=== PATIENT | female | born 1975 | race Caucasian/White ===

== ENCOUNTER 2016-05-10 20:48 | Emergency (ER) | payer MEDICAID, OTHER ==
[~2016-05-10] VITALS: Ht 162.6 cm; Wt 77.1 kg
[~2016-05-10 20:48] MED LIST: CARBAMAZEPINE200 M1 PO; TOPAMAX100 MG PO
[2016-05-10 20:57] VITALS: BP 103/74
--- NOTE | 2016-05-10 21:10 | NUR ---
TO ER BED 8
[2016-05-10] MEDS ORDERED: LORazepam 0.5 MG TAB PO ONE (21:35)
--- NOTE | 2016-05-10 21:35 | NUR ---
41 YEAR OLD FEMALE CAME IN DUE TO NUMBNESS OF BOTH HANDS AFTER TAKING OVER THE COUNTER MULTIVITAMINS SINCE LAST WEEK. NO SEIZURE NOTED. NO PAIN, DENIES NAUSEA/VOMITING/DIARRHEA.
[2016-05-10 23:42] VITALS: BP 105/69
--- NOTE | 2016-05-10 23:42 | NUR ---
Patient discharged with v/s stable. Written and verbal after care instructions given and explained WITH RX ATIVAN. Patient verbalized understanding. Ambulatory with steady gait. All questions addressed prior to discharge. Advised to follow up with PMD. DISCHARGED PER DR. IRIZARRY.
[2016-08-10] MEDS ORDERED: TEGRETOL200 MG PO (15:26)
[2016-08-11] MEDS ORDERED: TOPAMAX100 MG PO (15:16)
[2016-08-11] MEDS ORDERED: TEGRETOL200 M1 PO (15:16)
== END 2016-05-10 23:42 | disposition home or self-care (01) ==
LOC: MED 20:48
DX: G40.909 Epilepsy, unspecified, not intractable, without status epilepticus (principal); F41.9 Anxiety disorder, unspecified

== ENCOUNTER 2016-05-13 19:30 | Emergency (ER) | payer OTHER, MEDICAID ==
[~2016-05-13] VITALS: Ht 162.6 cm; Wt 77.1 kg
[2016-05-13 19:50] VITALS: BP 119/86
--- NOTE | 2016-05-13 19:58 | NUR ---
TO ER BED 3
--- NOTE | 2016-05-13 20:05 | NUR ---
41 Y/O HERE W/C/O NEEDS REFILL ON TEGRETOL, AND ALSO C/O PAIN AND SPASTICITY TO L 4 AND 5TH FINGERS SINCE LAST SEIZURE ACTITY 2 WKS AGO. NO S/S OF DISTRESS NOTED AT THE MOMENT. ER MADE AWARE.
--- NOTE | 2016-05-13 20:47 | NUR ---
MOVED TO ER OF1
--- NOTE | 2016-05-13 20:49 | NUR ---
Patient being evaluated by physician.
[2016-05-13 20:55] VITALS: BP 119/86
--- NOTE | 2016-05-13 20:55 | NUR ---
Patient discharged with v/s stable. Written and verbal after care instructions given and explained. Patient alert, oriented and verbalized understanding of instructions. Ambulatory with steady gait. All questions addressed prior to discharge. ID band removed. Patient advised to follow up with PMD. Rx of TEGRETOL given. Patient educated on indication of medication including possible reaction and side effects. Opportunity to ask questions provided and answered.
[2016-08-10] MEDS ORDERED: TEGRETOL200 MG PO (15:26)
[2016-08-11] MEDS ORDERED: TEGRETOL200 M1 PO (15:16)
[2016-08-11] MEDS ORDERED: TOPAMAX100 MG PO (15:16)
== END 2016-05-13 20:55 | disposition home or self-care (01) ==
LOC: MED 19:30
DX: Z76.0 Encounter for issue of repeat prescription (principal); R56.9 Unspecified convulsions

== ENCOUNTER 2016-05-24 17:57 | Emergency (ER) | payer OTHER, MEDICAID ==
[~2016-05-24] VITALS: Ht 162.6 cm; Wt 83.0 kg
[2016-05-24 18:27] VITALS: BP 130/84
--- NOTE | 2016-05-24 19:41 | NUR ---
PT TAKEN TO OF
--- NOTE | 2016-05-24 19:44 | NUR ---
41Y/F PATIENT PRESENTS TO ED FOR MEDICATIONS REFILL. AAO X4, AMBULATORY WITH STEADY GAIT. NO S/SX OF DISTRESS. VSS.
--- NOTE | 2016-05-24 19:57 | NUR ---
Dr. Juarez evaluating patient
--- NOTE | 2016-05-24 20:20 | NUR ---
Patient discharged with v/s stable. Written and verbal after care instructions given and explained. Patient alert, oriented and verbalized understanding of instructions. Ambulatory with steady gait. All questions addressed prior to discharge. ID band removed. Patient advised to follow up with PMD. Rx of TOPIRAMATE 100 MG given. Patient educated on indication of medication including possible reaction and side effects. Opportunity to ask questions provided and answered.
[2016-05-24 20:26] VITALS: BP 130/84
--- NOTE | 2016-05-24 20:27 | NUR ---
Note [place] in EDM - 05/24/16 at 2026 by MED Patient discharged with v/s stable. Written and verbal after care instructions given and explained. Patient alert, oriented and verbalized understanding of instructions. Ambulatory with steady gait. All questions addressed prior to discharge. ID band removed. Patient advised to follow up with PMD. Rx of TOPIRAMATE 100 MG given. Patient educated on indication of medication including possible reaction and side effects. Opportunity to ask questions provided and answered.
[2016-08-10] MEDS ORDERED: TEGRETOL200 MG PO (15:26)
[2016-08-11] MEDS ORDERED: TEGRETOL200 M1 PO (15:16)
[2016-08-11] MEDS ORDERED: TOPAMAX100 MG PO (15:16)
== END 2016-05-24 20:20 | disposition home or self-care (01) ==
LOC: MED 17:57
DX: Z76.0 Encounter for issue of repeat prescription (principal)

== ENCOUNTER 2016-06-11 01:25 | Emergency (ER) | payer OTHER, MEDICAID ==
[~2016-06-11] VITALS: Ht 162.6 cm; Wt 72.6 kg
[2016-06-11 01:32] VITALS: BP 150/90
--- NOTE | 2016-06-11 01:45 | NUR ---
BIBA TO ER BED 8
--- NOTE | 2016-06-11 01:46 | NUR ---
41 Y/O F BIBA W/C/O L WRIST PAIN AND NUMBNESS X TODAY. FAMILY CALLED AMBULANCE BECAUSE PT NOT ACTING HERSELF. PT ALERT AND ORIENTED X 4 BUT SMILES VERY OFTEN WITH NO REASONS AND SEEMS DISORIENTED FOR MOMENTS. PT ON MONITOR, VSS. NO S/S OF DISTRESS ER MD MADE AWARE.
--- NOTE | 2016-06-11 02:30 | NUR ---
PT STABLE, ON MONITOR. NO S/S OF DISTRESS NOTED ON D/C.
--- NOTE | 2016-06-11 03:30 | NUR ---
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 PER PT OK FOR US TO CALL A TAXI FOR HER. PT ALERT AND ORIENTED X 4. NO S/S OF DISTRESS NOTED AT THE MOMENT.
[2016-06-11 03:46] VITALS: BP 121/68
--- NOTE | 2016-06-11 03:46 | NUR ---
PER ER MD Patient discharged with v/s stable. Written and verbal after care instructions given and explained. Patient alert, oriented and verbalized understanding of instructions. Ambulatory with steady gait. All questions addressed prior to discharge. ID band removed. Patient advised to follow up with PMD OR RETURN TO ER IF CONDITION WORSENS. Rx of CIPROFLOXACIN given. Patient educated on indication of medication including possible reaction and side effects. Opportunity to ask questions provided and answered.
--- NOTE | 2016-06-11 04:18 | NUR ---
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
[2016-08-10] MEDS ORDERED: TEGRETOL200 MG PO (15:26)
[2016-08-11] MEDS ORDERED: TEGRETOL200 M1 PO (15:16)
[2016-08-11] MEDS ORDERED: TOPAMAX100 MG PO (15:16)
== END 2016-06-11 03:46 | disposition home or self-care (01) ==
LOC: MED 01:25
DX: M79.602 Pain in left arm (principal)
CPT/HCPCS: 36415; 80053; 80305; 81001; 81025; 82550; 84484; 85025; 87086; 87186; 93005; 99285; G0480; G0482

== ENCOUNTER 2016-06-20 08:10 | Emergency (ER) | payer MEDICAID ==
[~2016-06-20] VITALS: Ht 162.6 cm; Wt 68.0 kg
[~2016-06-20 08:10] MED LIST changes: +CARB200T7 PO; -CARBAMAZEPINE200 M1 PO; -TOPAMAX100 MG PO; +[UNRECOGNIZED DRUG - CODE] PO
[2016-06-20 08:14] VITALS: BP 133/80
[2016-06-20 09:38] VITALS: BP 123/88
== END 2016-06-20 09:38 | disposition home or self-care (01) ==
LOC: MED 08:10
DX: Z91.19 Patient's noncompliance with other medical treatment and regimen (principal); G40.909 Epilepsy, unspecified, not intractable, without status epilepticus
CPT/HCPCS: 99283

== ENCOUNTER 2016-07-13 14:43 | Emergency (ER) | payer MEDICAID ==
[~2016-07-13] VITALS: Ht 162.6 cm; Wt 72.6 kg
[2016-07-13 15:23] VITALS: BP 122/70
--- NOTE | 2016-07-13 19:10 | NUR ---
PT TAKEN TO BED 8
[2016-07-13] MEDS ORDERED: LORazepam 2 MG/ML VIAL IM/IVP ONE (19:20)
--- NOTE | 2016-07-13 19:20 | NUR ---
41Y F BIB SELF REQUESTING MEDICATION REFILL OF TEGRETOL 200 TID; AND TOPAMAX 100MG TID; PT STATES SHE MOVED HERE FROM [place] AND IS LOOKING FOR NEUROLOGIST REFERAL. PT HAD SEIZURE WHILE WAITING IN ER BED 8. NO SIGNS OF ORAL TRAUMA WAS NOTED. PT WAS BROUGHT TO BED SAFELY BY ER STAFF. NO TRAUMA TO HEAD NOTED WELL. PT HAS HX OF SEIZURE. SEIZURE PRECAUTION APPLIED.
--- NOTE | 2016-07-13 19:24 | NUR ---
Dr. Sanches evaluating patient at bedside.
[2016-07-13] MEDS ORDERED: LORazepam 2 MG/ML VIAL ONE (19:29)
--- NOTE | 2016-07-13 19:50 | NUR ---
Pt report given to TUCKER RICHARDSON. Transfer of care at this time.
--- NOTE | 2016-07-13 19:50 | NUR ---
RECEIVED REPORT FROM DYLAN AGUILAR FOR TRANSFER OF CARE.
--- NOTE | 2016-07-13 20:01 | NUR ---
PT RETURNED FROM CT
[2016-07-13] MEDS ORDERED: TOPIRAMATE 100 MG TAB PO ONE (20:50)
[2016-07-13] MEDS ORDERED: carBAMazepine 200 MG TAB PO ONE (20:50)
--- NOTE | 2016-07-13 20:53 | NUR ---
TOPAMAX 100MG NOT IN PYXIS, HOUSE SUP HAS BEEN NOTIFIED
[2016-07-13 21:07] VITALS: BP 118/78
--- NOTE | 2016-07-13 21:08 | NUR ---
Patient discharged with v/s stable. Written and verbal after care instructions given and explained. Patient alert, oriented and verbalized understanding of instructions. Ambulatory with steady gait. All questions addressed prior to discharge. ID band removed. Patient advised to follow up with PMD. Rx of TEGRETOL-XR, TOPAMAX given. Patient educated on indication of medication including possible reaction and side effects. Opportunity to ask questions provided and answered.
[2016-07-13] MEDS ORDERED: TOPIRAMATE 25 MG TAB ONE (21:13)
== END 2016-07-13 21:08 | disposition home or self-care (01) ==
LOC: MED 14:43
DX: Z76.0 Encounter for issue of repeat prescription (principal); R56.9 Unspecified convulsions
CPT/HCPCS: 70450; 96374; 99284; J2060

== ENCOUNTER 2016-08-10 14:58 | Inpatient (IN) | payer MEDICAID ==
[~2016-08-10] VITALS: Ht 162.6 cm; Wt 63.1 kg
--- NOTE | 2016-08-10 15:00 | NUR ---
Patient BIBA ACLS accompanied by Laurie SONG, transferred to bed 7. RN evaluating patient at bedside.
--- NOTE | 2016-08-10 15:05 | NUR ---
41/F biba for seizure while riding on the bus. Witnessed seizure, unknown for how long. Mother brought in with the patient and states she fell on her back and hit her head and had a seizure. Pt is awake and alert x4, clear speech. Pt states "I had a seizure." Pt states she is taking seizure medication, hx of seizure. Denies any pain. No oral trauma noted. Skin warm and dry. VSS. Pt placed in a gown, placed on cardiac catheterization technician, pulse oximetry and blood pressure monitoring. Suction set up at bedside. Bed placed in lowest position, both side rails up. Seizure pads applied. Mother brought to bedside.
[2016-08-10 15:16] VITALS: BP 100/66
--- NOTE | 2016-08-10 15:23 | NUR ---
SEIZURE ACTIVITY.ERMD AT BEDSIDE/MONITORED. NO INJURY
[2016-08-10] MEDS ORDERED: CARB200T1 PO (15:26)
--- NOTE | 2016-08-10 15:30 | NUR ---
PATIENT MEDICATED ATIVAN 1MG.IVP
[2016-08-10] MEDS ORDERED: LORazepam 2 MG/ML VIAL ONE (15:31)
[2016-08-10 15:53] LABS: BASOPHILS # (AUTO) 0.2 K/uL (0.00-0.22); BASOPHILS % (AUTO) 2.1 % (0.0-2.0); EOSINOPHILS # (AUTO) 0.1 K/uL (0-0.4); EOSINOPHILS % (AUTO) 1.1 % (0.0-4.0); HEMATOCRIT 37.2 % (36-48); LYMPHOCYTES # (AUTO) 3.8 K/uL (2.5-16.5); LYMPHOCYTES % (AUTO) 32.6 % (20.5-51.1); MEAN CORPUSCULAR HEMOGLOBIN 26 pg (27-31); MEAN CORPUSCULAR HGB CONC 32 g/dL (33-37); MEAN CORPUSCULAR VOLUME 82 fL (80-94); MONOCYTES # (AUTO) 0.5 K/uL (0.8-1.0); MONOCYTES % (AUTO) 4.3 % (1.7-9.3); NEUTROPHILS # (AUTO) 7.1 K/uL (1.8-7.7); NEUTROPHILS % (AUTO) 59.9 % (42.2-75.2); PLATELET COUNT (AUTO) 220 K/uL (140-450); RED BLOOD CELL COUNT(AUTO) 4.53 MIL/uL (4.20-5.40); RED CELL DISTRIBUTION WIDTH 14.7 % (11.6-13.7); WHITE BLOOD COUNT (AUTO) 11.7 K/uL (4.8-10.8)
--- NOTE | 2016-08-10 15:55 | NUR ---
Pt is now calm and relaxed at this time. VSS.
--- NOTE | 2016-08-10 16:09 | NUR ---
X-Ray at bedside.
--- NOTE | 2016-08-10 16:11 | NUR ---
Patient taken to CT via gurney.
[2016-08-10 16:13] LABS: ANION GAP 22.5 (8-16); CALCIUM 8.1 mg/dL (8.5-10.1); CARBON DIOXIDE 13.1 mmol/L (21-32); CREATININE 1.1 mg/dL (0.6-1.3); POTASSIUM 3.6 mmol/L (3.5-5.1)
[2016-08-10 16:14] LABS: PHENYTOIN (DILANTIN) 0.7 ug/ml (10.0-20.0)
[2016-08-10 16:15] LABS: PHENOBARBITAL < 1 ug/ml (15-40)
[2016-08-10] MEDS ORDERED: HYDROcodone/APAP 5/325 MG 1 TAB TAB PO PRN (16:20)
[2016-08-10] MEDS ORDERED: ONDANSETRON 4 MG/2 ML VIAL IVP PRN (16:20)
[2016-08-10] MEDS ORDERED: LORazepam 2 MG/ML VIAL IVP PRN (16:20)
[2016-08-10] MEDS ORDERED: MORPHINE SULFATE 2 MG/ML SYR IVP PRN ×2 (16:20→19:05)
--- NOTE | 2016-08-10 16:23 | NUR ---
Patient returned from CT scan.
[2016-08-10] MEDS ORDERED: PHENYTOIN 1,000 MG in NACL 0.9% 100 ML IV ONE (16:30)
[2016-08-10] MEDS ORDERED: PHENYTOIN 1,000 MG in NACL 0.9% 100 ML IV SCH (16:32)
--- NOTE | 2016-08-10 17:00 | NUR ---
Pt ambulated to restroom with steady gait.
--- NOTE | 2016-08-10 17:29 | NUR ---
Patient will be admitted to care of Dr. Cai. Admited to TELE. Will go to room 109-B. Belongings list completed. Report to Quynh RICHARDSON.
--- NOTE | 2016-08-10 17:55 | NUR ---
PT BROUGHT IN FROM ER IN [facility], PT AMBULATES WITH STEADY GAIT FROM HALLWAY TO BED, PT AAOX4, RESP EVEN UNLABORED, SKIN WARM DRY COLOR WNL, PIV TO LEFT FA, INFUSION OF DILANTIN FROM ER CONTINUES, SITE CLEAR, PT PLACED ON MANAGER HOME IMPROVEMENT, PT ORIENTED TO FLOOR, CALL [place] WITHIN REACH, SIDE RAILS UP, BED LOCKED IN LOW POSITION, SIDE RAILS PADDED FOR SZ PRECAUTION, PT C/O MANCERA, REQUESTS TYLENOL, DR MINERVA COUCH AT THIS TIME. WILL CONTINUE TO MONITOR. Addendum: 08/10/16 at 1941 by Quynh Elias RN PT SPEAKS CLEARLY, NO SZ ACTIVITY NOTED.
[2016-08-10 18:00] VITALS: BP 103/67
[2016-08-10] MEDS: NACL 0.9% 1,000 ML IV SCH (18:10)
--- NOTE | 2016-08-10 18:10 | NUR ---
DR PALMA NOTIFIED OF PT C/O MANCERA, DR PALMA TO ORDER TYLENOL.
[2016-08-10] MEDS: ACETAMINOPHEN 325 MG TAB PO PRN (18:54)
[2016-08-10] MEDS ORDERED: LORazepam 2 MG/ML VIAL IM/IVP PRN (18:55)
[2016-08-10 19:03] LABS: APPEARANCE,URINE CLEAR (CLEAR); BILIRUBIN,URINE NEGATIVE (NEGATIVE); BLOOD, URINE NEGATIVE (NEGATIVE); COLOR,URINE YELLOW (YELLOW); LEUKOCYTE ESTERASE ,URINE NEGATIVE (NEGATIVE); NITRITE, URINE NEGATIVE (NEGATIVE); PROTEIN,URINE 1+ (NEGATIVE); UGLUCOSE NEGATIVE (NEGATIVE); UROBILINOGEN,URINE 0.2 EU/dL (0.2 - 1)
[2016-08-10 19:10] LABS: AMPHETAMINE, URINE NEG. ng/ml (NEG <=1000); BARBITURATE, URINE NEG. ng/ml (NEG <=200); BENZODIAZEPINE, URINE NEG. ng/mL (NEG <=200); CANNABINOID, URINE NEG. ng/mL (NEG <=50); COCAINE, URINE NEG. ng/mL (NEG <=300); OPIATE, URINE NEG. ng/mL (NEG <=2000); PHENCYCLIDINE SCREEN,URINE NEG. ng/mL (NEG <=25)
[2016-08-10 19:16] LABS: BACTERIA,URINE None Seen /HPF (None Seen); RBC,URINE NONE SEEN /HPF (0-5); SQUAMOUS EPITHELIAL CELL,UR None Seen /LPF (0-3 (FEW)); WBC,URINE NONE SEEN /HPF (0-5)
[2016-08-10 19:19] LABS: PARTIAL THROMBOPLASTIN TIME 26.6 secs (22-35.6); PROTHROMBIN TIME 10.3 secs (10.8-13.4)
[2016-08-10 19:20] LABS: THYROID STIMULATING HORMONE 1.35 uIU/mL (0.34-3.74)
--- NOTE | 2016-08-10 19:25 | NUR ---
REPORT GIVEN TO [place] NURSE, PT IN STABLE CONDITION.
--- NOTE | 2016-08-10 19:26 | NUR ---
RECEIVED REPORT FROM DAY RN FOR CONTINUITY OF CARE. PATIENT IS 41 Y.O. FEMALE BROUGHT TO UNIT WITH DX: STATUS EPILEPTICUS. PATIENT IS A&OX4, DISCUSSED PLAN OF CARE WITH PATIENT, VERBALIZED UNDERSTANDING. SHIFT ASSESSMENT DONE, VS TAKEN, STABLE AT THIS TIME. NO S/S OF RESPIRATORY DISTRESS NOTED ON ROOM AIR. PATIENT DENIES PAIN AT THIS TIME. SKIN INTACT, BILATERAL KNEE BRUISING PER PATIENT FROM FALL DURING SEIZURE. IV TO LT FA 20 GAUGE PATENT AND INFUSING FLUIDS WELL. SAFETY/SEIZURE PRECAUTIONS ENFORCED. CALL LIGHT WITHIN REACH. WILL CONTINUE TO MONITOR.
--- NOTE | 2016-08-10 19:50 | NUR ---
PATIENT TAKEN OFF UNIT TO XRAY VIA WHEELCHAIR, IN STABLE CONDITION.
[2016-08-10 20:00] VITALS: BP 100/68
--- NOTE | 2016-08-10 20:14 | NUR ---
PT IS NOT IN ROOM FOR ABG. WILL DO IT AFTER SHE IS BACK.
--- NOTE | 2016-08-10 20:30 | NUR ---
PATIENT RETURNED FROM XRAY AND NOW RESTING IN BED. CALL LIGHT WITHIN REACH.
[2016-08-10 20:40] LABS: BLOOD GAS BASE EXCESS -5.7 mmol/L (-2.0-2.0); BLOOD GAS HCO3 19.1 mmol/L; BLOOD GAS PCO2 35.4 mmHg (20-50); BLOOD GAS PO2 102.3 mmHg
[2016-08-10 20:41] LABS: BLOOD GAS O2 SAT% 97.6 % (92.0-98.5)
[2016-08-10 20:42] LABS: BLOOD GAS PH 7.351 (7.35-7.45)
--- NOTE | 2016-08-10 20:43 | NUR ---
ABG DONE WITHOUT INCIDENT.
[2016-08-10] MEDS: HYDROcodone/APAP 5/325 MG 1 TAB TAB PO PRN (22:39)
--- NOTE | 2016-08-10 22:39 | NUR ---
PT C/O HEADACHE, MEDICATED PER MD ORDER. WILL CONTINUE TO MONITOR.
[2016-08-11] VITALS: BP 96/48
--- NOTE | 2016-08-11 00:10 | NUR ---
VITAL SIGNS STABLE AT THIS TIME. PATIENT AMBULATED TO RESTROOM, NO S/S OF DISTRESS OR DISCOMFORT NOTED. CALL LIGHT IN REACH.
--- NOTE | 2016-08-11 02:10 | NUR ---
PATIENT SLEEPING AT THIS TIME, NO S/S OF DISTRESS OR DISCOMFORT NOTED. WILL CONTINUE TO MONITOR.
[2016-08-11] MEDS: NACL 0.9% 1,000 ML IV SCH ×4 (02:23→20:15)
[2016-08-11 04:00] VITALS: BP 97/61
--- NOTE | 2016-08-11 04:12 | NUR ---
PT C/O IV LINE BOTHERING HER, NEW IV LINE INSERTION TO LT FA PATENT AND INFUSING FLUIDS WELL.
--- NOTE | 2016-08-11 06:03 | NUR ---
PATIENT AWAKE RESTING IN BED, NO S/S OF DISTRESS OR DISCOMFORT NOTED. CALL LIGHT IN REACH.
[2016-08-11 06:36] LABS: BASOPHILS # (AUTO) 0.1 K/uL (0.00-0.22); BASOPHILS % (AUTO) 1.2 % (0.0-2.0); EOSINOPHILS # (AUTO) 0.1 K/uL (0-0.4); EOSINOPHILS % (AUTO) 1.1 % (0.0-4.0); HEMATOCRIT 36.4 % (36-48); HEMOGLOBIN 11.7 g/dL (12.0-16.0); LYMPHOCYTES # (AUTO) 3.3 K/uL (2.5-16.5); LYMPHOCYTES % (AUTO) 41.7 % (20.5-51.1); MEAN CORPUSCULAR HEMOGLOBIN 26 pg (27-31); MEAN CORPUSCULAR HGB CONC 32 g/dL (33-37); MEAN CORPUSCULAR VOLUME 81 fL (80-94); MONOCYTES # (AUTO) 0.6 K/uL (0.8-1.0); MONOCYTES % (AUTO) 8.1 % (1.7-9.3); NEUTROPHILS # (AUTO) 3.7 K/uL (1.8-7.7); NEUTROPHILS % (AUTO) 47.9 % (42.2-75.2); PLATELET COUNT (AUTO) 234 K/uL (140-450); RED BLOOD CELL COUNT(AUTO) 4.48 MIL/uL (4.20-5.40); RED CELL DISTRIBUTION WIDTH 14.7 % (11.6-13.7); WHITE BLOOD COUNT (AUTO) 7.8 K/uL (4.8-10.8)
[2016-08-11 07:01] LABS: ANION GAP 15.2 (8-16); CALCIUM 8.1 mg/dL (8.5-10.1); CARBON DIOXIDE 20.1 mmol/L (21-32); CREATININE 0.7 mg/dL (0.6-1.3); POTASSIUM 3.3 mmol/L (3.5-5.1)
--- NOTE | 2016-08-11 07:03 | NUR ---
PATIENT HAS BEEN SCREENED AND CATEGORIZED LOW NUTRITION RISK. PATIENT WILL BE SEEN WITHIN 7 DAYS OF ADMISSION. 08/17/16 JUAN FLOREZ MS, RDN
[2016-08-11 07:10] LABS: MAGNESIUM 2.1 mg/dL (1.8-2.4); PHOSPHORUS 2.7 mg/dL (2.5-4.9)
--- NOTE | 2016-08-11 07:25 | NUR ---
ENDORSED PATIENT TO DAY RN FOR CONTINUITY OF CARE, PATIENT IS IN STABLE CONDITION.
--- NOTE | 2016-08-11 07:26 | NUR ---
RECEIVED PT IN BED AWAKE, ALERT ORIENTEDX4. NO SOB NOTED. DENIES ANY PAIN OR DISCOMFORT AT THIS TIME. POSITIVE BOWEL SOUNDS NOTED ON FOUR QUADRANTS. PT AMBULATORY. SAFETY PRECAUTION IN PLACE. CALL LIGHT WITHIN REACH.
[2016-08-11 08:00] VITALS: BP 99/62
[2016-08-11] MEDS ORDERED: carBAMazepine 200 MG TAB PO SCH (09:00)
[2016-08-11] MEDS: carBAMazepine 200 MG TAB PO SCH ×3 (09:18→20:11)
[2016-08-11] MEDS ORDERED: POTASSIUM CHLORIDE 20% 40 MEQ/15 ML UDC PO SCH (11:00)
--- NOTE | 2016-08-11 11:00 | NUR ---
DR. VALVERDE MADE AWARE OF POTASSIUM LEVEL OF PT. 3.3. WITH NEW ORDERS MADE AND CARRIED OUT.
[2016-08-11 12:00] VITALS: BP 105/66
--- NOTE | 2016-08-11 12:00 | NUR ---
PT AMBULATED TO THE BATHROOM INDEPENDENTLY. PT STABLE. NO SOB NOTED. DENIES ANY PAIN OR DISCOMFORT AT THIS TIME.
[2016-08-11] MEDS ORDERED: [UNRECOGNIZED DRUG - CODE] PO (15:16)
[2016-08-11] MEDS ORDERED: CARB200T1 PO (15:16)
[2016-08-11 16:00] VITALS: BP 103/67
--- NOTE | 2016-08-11 16:00 | NUR ---
PT REQUESTED FOR SOME SNACKS. PT PROVIDED WITH SOME CRACKERS, JUICE AND JELLO. TOLERATED WELL.
[2016-08-11] MEDS: TOPIRAMATE 100 MG TAB PO SCH (17:46)
--- NOTE | 2016-08-11 19:25 | NUR ---
PT KEPT CLEAN, DRY AND COMFORTABLE, NEEDS ATTENDED. NO SIGNS AND SYMPTOMS OF SEIZURE EPISODES NOTED ON SHIFT. NO SOB, DENIES ANY PAIN OR DISCOMFORT AT THIS TIME. PT ENDORSED TO NEXT SHIFT ON STABLE CONDITION FOR CONTINUITY OF CARE.
--- NOTE | 2016-08-11 19:30 | NUR ---
RECEIVED PT AWAKE, VITAL SIGNS STABLE, COMPLAINING OF HEADACHE, WILL MEDICATE PRN, ON SEIZURE PRECAUTION WITH SIDE RAILS UP AND PADDED, SAFETY MEASURES IN PLACE, CALL LIGHT WITHIN REACH.
[2016-08-11] MEDS: ACETAMINOPHEN 325 MG TAB PO PRN (19:37)
[2016-08-11 20:00] VITALS: BP 102/72
--- NOTE | 2016-08-11 20:20 | NUR ---
DUE TEGRETOL GIVEN WITH EDUCATION PROVIDED, ALL NEEDS ATTENDED.
[2016-08-11] MEDS: HYDROcodone/APAP 5/325 MG 1 TAB TAB PO PRN (23:11)
--- NOTE | 2016-08-11 23:15 | NUR ---
PT COMPLAINING OF HEADACHE, VITAL SIGNS STABLE, MEDICATED PRN WITH NORCO, CONTINUE ON SEIZURE PRECAUTION, MONITORED CLOSELY.
[2016-08-12] VITALS: BP 107/67
[2016-08-12] MEDS: NACL 0.9% 1,000 ML IV SCH ×3 (03:17→11:45)
[2016-08-12 04:00] VITALS: BP 93/58
--- NOTE | 2016-08-12 04:00 | NUR ---
PT SLEEPING, EASILY AROUSABLE, VITAL SIGNS STABLE, DENIES ANY PAIN, NO SEIZURE EPISODE NOTED, CONTINUE TO MONITOR CLOSELY.
--- NOTE | 2016-08-12 05:30 | NUR ---
PT AWAKE, DENIES ANY PAIN, COFFEE PROVIDED PER REQUEST, NO SEIZURE ACTIVITY THE WHOLE SHIFT, MONITORED CLOSELY.
[2016-08-12 06:47] LABS: BASOPHILS # (AUTO) 0.2 K/uL (0.00-0.22); BASOPHILS % (AUTO) 2.5 % (0.0-2.0); EOSINOPHILS % (AUTO) 0.6 % (0.0-4.0); HEMATOCRIT 38.7 % (36-48); HEMOGLOBIN 12.5 g/dL (12.0-16.0); LYMPHOCYTES # (AUTO) 3.4 K/uL (2.5-16.5); LYMPHOCYTES % (AUTO) 46.4 % (20.5-51.1); MEAN CORPUSCULAR HEMOGLOBIN 26 pg (27-31); MEAN CORPUSCULAR HGB CONC 32 g/dL (33-37); MEAN CORPUSCULAR VOLUME 81 fL (80-94); MONOCYTES # (AUTO) 0.6 K/uL (0.8-1.0); MONOCYTES % (AUTO) 7.5 % (1.7-9.3); NEUTROPHILS # (AUTO) 3.2 K/uL (1.8-7.7); PLATELET COUNT (AUTO) 227 K/uL (140-450); RED BLOOD CELL COUNT(AUTO) 4.75 MIL/uL (4.20-5.40); RED CELL DISTRIBUTION WIDTH 15.2 % (11.6-13.7); WHITE BLOOD COUNT (AUTO) 7.4 K/uL (4.8-10.8)
--- NOTE | 2016-08-12 06:47 | NUR ---
DR BOLES HERE WITH ORDER TO DOWNGRADE PT TO MED-SURG STATUS, TELE MONITOR REMOVED, PT IN STABLE CONDITION, WILL ENDORSE.
[2016-08-12 06:50] LABS: ANION GAP 13.9 (8-16); CARBON DIOXIDE 21.3 mmol/L (21-32); CREATININE 0.7 mg/dL (0.6-1.3); POTASSIUM 3.2 mmol/L (3.5-5.1)
--- NOTE | 2016-08-12 07:10 | NUR ---
PT AWAKE, NO SIGNS OF DISTRESS, REPORT GIVEN TO DYLAN DUDLEY FOR CONTINUITY OF CARE.
--- NOTE | 2016-08-12 07:15 | NUR ---
RECEIVED REPORT FROM DYLAN TREVINO. PT IS RESTING IN BED, A/OX4, AMBULATORY, SKIN IS INTACT, PT HAS IV ON THE LEFT FA, PATENT, INTACT, INFUSING WELL, NO S/S OF RESPIRATORY DISTRESS OR DISCOMFORT NOTED, SAFETY/FALL/SEIZURE PRECAUTIONS ARE IN PLACE, DISCUSSED PLAN OF CARE WITH PT, PT VERBALIZED UNDERSTANDING, CALL LIGHT WITHIN REACH, WILL CONTINUE TO MONITOR.
[2016-08-12 08:00] VITALS: BP 102/73
[2016-08-12] MEDS: carBAMazepine 200 MG TAB PO SCH (08:33)
[2016-08-12] MEDS: TOPIRAMATE 100 MG TAB PO SCH ×2 (08:33→13:18)
--- NOTE | 2016-08-12 09:15 | NUR ---
PT RESTING IN BED, WATCHING TV, NO S/S OF RESPIRATORY DISTRESS OR DISCOMFORT NOTED, CALL LIGHT WITHIN REACH, WILL CONTINUE TO MONITOR.
--- NOTE | 2016-08-12 10:15 | NUR ---
PATIENT IS COMPLAINING OF PAIN AT IV SITE, THERE IS SOME REDNESS NOTED AROUND THE IV SITE, WILL DISCONTINUE IV ON THE FOREARM AT THIS TIME.
--- NOTE | 2016-08-12 10:35 | NUR ---
NEW IV INSERTED ON THE LT AC, #22, PATENT, INTACT, INFUSING WELL.
--- NOTE | 2016-08-12 12:35 | NUR ---
PT IS RESTING IN BED, WATCHING TV, CALL LIGHT WITHIN REACH.
[2016-08-12] MEDS ORDERED: POTASSIUM CHLORIDE 10 MEQ TABER PO SCH (12:55)
--- NOTE | 2016-08-12 14:40 | NUR ---
PT RESTING IN BED TALKING ON HER CELL PHONE, I LET HER KNOW DR. BOLES HAD PUT IN A DISCHARGE ORDER. PT VERBALIZED UNDERSTANDING.
[2016-08-12 16:00] VITALS: BP 100/71
--- NOTE | 2016-08-12 16:00 | NUR ---
DISCHARGE INSTRUCTIONS GIVEN, ID WRIST BAND REMOVED, IV REMOVED, CATHETER TIP INTACT.
--- NOTE | 2016-08-12 17:30 | NUR ---
PT STABLE UPON DISCHARGE ACCOMPANIED BY FRIEND.
== END 2016-08-12 17:30 | disposition home or self-care (01) | DRG 53 ==
LOC: MED 14:58 → MTU 16:22
PROVIDERS: ADMIT Family Medicine; ATTEND Family Medicine
DX: G40.901 Epilepsy, unspecified, not intractable, with status epilepticus (principal); N17.0 Acute kidney failure with tubular necrosis; Z79.899 Other long term (current) drug therapy; G90.9 Disorder of the autonomic nervous system, unspecified; D72.829 Elevated white blood cell count, unspecified; E87.6 Hypokalemia; E78.5 Hyperlipidemia, unspecified; J98.11 Atelectasis; Z91.14 Patient's other noncompliance with medication regimen
CPT/HCPCS: 36415; 36600; 70450; 71010; 72100; 80048; 80156; 80184; 80185; 80305; 81001; 82803; 82948; 83036; 83735; 84100; 84443; 85025; 85610; 85730; 87081; 93005; 96365; 96375; 99291; J1165; J2060; J7030; Q0092